=== PATIENT | male | born 1980 | race Caucasian/White ===

== ENCOUNTER 2022-04-21 21:47 | Inpatient (IN) | payer OTHER ==
[2022-04-21 23:50] LABS: BASO % 0.8 % (0-2.0); EOS % 1.2 % (0-4.5); HEMATOCRIT 29.8 % (35.4-49); HEMOGLOBIN 10.1 GM/dL (11.7-16.9); LYMPH % 15.1 % (8-40); MCH 28.7 pg (25.7-33.7); MEAN CELL VOLUME 84.6 fl (80-96); MEAN PLT VOLUME 7.5 fl (7.5-11.1); MONO % 11.6 % (3.8-10.2); NEUT % 71.3 % (42.8-82.8); PLATELET COUNT 376 10^3/uL (134-434); RBC 3.52 M/mm3 (4.00-5.60); RDW 15.9 % (11.9-15.9); WHITE BLOOD COUNT 13.3 K/mm3 (4.0-10.0)
[2022-04-21] MEDS ORDERED: PIPERACILLIN/TAZOB 4.5 GM 4.5 GM in DEXTROSE 5%-WATER 100 ML IVPB ONE (23:56)
[2022-04-21] MEDS ORDERED: VANCOMYCIN 1 GM in D5W (PRE-DOCKED) 1,000 MG/250 ML IVPB ONE (23:56)
[2022-04-21 23:58] LABS: INR 1.07 (0.83-1.09); PROTHROMBIN TIME (PATIENT) 12.3 SEC (9.7-13.0)
[2022-04-22 00:01] LABS: ACTIVATED PTT 33.2 SECONDS (25.2-36.5)
[2022-04-22 00:18] LABS: CALCIUM 8.4 mg/dL (8.5-10.1)
[2022-04-22 00:19] LABS: ALBUMIN 3.2 g/dl (3.4-5.0)
[2022-04-22 00:21] LABS: CREATININE 0.8 mg/dL (0.55-1.3)
[2022-04-22 00:23] LABS: BILIRUBIN,TOTAL 0.9 mg/dL (0.2-1); TOT PROT 8.5 g/dl (6.4-8.2)
[2022-04-22] MEDS ORDERED: PIPERACILLIN/TAZOB 4.5 GM 4.5 GM/100 ML BAG IVPB ONE (00:25)
[2022-04-22] MEDS ORDERED: VANCOMYCIN 1 GRAM (PRE-DOCKED) 1,000 MG/250 ML BAG IVPB ONE (00:25)
[2022-04-22] MEDS ORDERED: amLODIPine BESYLATE 5 MG TABLET (FP) PO ONE (02:41)
[2022-04-22] MEDS ORDERED: LORazepam 1 MG TABLET PO PRN (02:50)
[2022-04-22] MEDS ORDERED: amLODIPine BESYLATE 5 MG TABLET (FP) ONE ×2 (05:00→08:53)
[2022-04-22] MEDS ORDERED: LORazepam 1 MG TABLET ONE (05:00)
[2022-04-22] MEDS: LORazepam 1 MG TABLET PO SCH ×4 (05:06→23:58)
[2022-04-22] MEDS ORDERED: HYDROCHLOROTHIAZIDE 12.5 MG CAPSULE (FP) PO SCH (07:00)
[2022-04-22] MEDS ORDERED: THIAMINE HCL 200 MG/2 ML VIAL IVPB ONE (07:25)
[2022-04-22 07:53] LABS: BASO % 0.7 % (0-2.0); EOS % 2.5 % (0-4.5); HEMATOCRIT 29.2 % (35.4-49); HEMOGLOBIN 10.1 GM/dL (11.7-16.9); LYMPH % 15.7 % (8-40); MCH 29.1 pg (25.7-33.7); MCHC 34.6 g/dl (32.0-35.9); MEAN CELL VOLUME 84.1 fl (80-96); MEAN PLT VOLUME 7.2 fl (7.5-11.1); MONO % 11.2 % (3.8-10.2); NEUT % 69.9 % (42.8-82.8); PLATELET COUNT 337 10^3/uL (134-434); RBC 3.47 M/mm3 (4.00-5.60); RDW 15.5 % (11.9-15.9); WHITE BLOOD COUNT 7.5 K/mm3 (4.0-10.0)
[2022-04-22 08:22] LABS: CALCIUM 8.1 mg/dL (8.5-10.1); MAGNESIUM 1.7 mg/dL (1.8-2.4)
[2022-04-22 08:26] LABS: CREATININE 0.7 mg/dL (0.55-1.3)
[2022-04-22] MEDS ORDERED: HYDROCHLOROTHIAZIDE 25 MG TABLET (FP) ONE (08:26)
[2022-04-22 08:28] LABS: TOT PROT 7.1 g/dl (6.4-8.2)
[2022-04-22] MEDS ORDERED: THIAMINE HCL 200 MG/2 ML VIAL ONE (08:28)
[2022-04-22] MEDS ORDERED: FOLIC ACID 1 MG TABLET (FP) ONE (08:29)
[2022-04-22 08:31] LABS: ALBUMIN 2.4 g/dl (3.4-5.0)
[2022-04-22] MEDS ORDERED: NICOTINE 14 MG/24 HOURS TOPICAL PATCH TD ONE (08:53)
[2022-04-22] MEDS ORDERED: MAGNESIUM SULFATE IN WATER 2 GM/50 ML IVPB IVPB ONE (08:53)
[2022-04-22] MEDS ORDERED: ENOXAPARIN NA (PORCINE) 40 MG/0.4 ML DISP.SYRIN SQ ONE (08:53)
[2022-04-22] MEDS ORDERED: MAGNESIUM SULF 50% (8.12 MEQ/2 ML-1 GM VIAL) IVPB ONE (09:30)
[2022-04-22] MEDS: FOLIC ACID 1 MG TABLET (FP) PO SCH (09:45)
[2022-04-22] MEDS: NICOTINE 14 MG/24 HOURS TOPICAL PATCH TD SCH (09:45)
[2022-04-22] MEDS ORDERED: PIPERACILLIN/TAZOB 3.375 GM 3.375 GM/50 ML BAG IVPB ONE ×2 (09:45→17:41)
[2022-04-22] MEDS: ENOXAPARIN NA (PORCINE) 40 MG/0.4 ML DISP.SYRIN SQ SCH (09:45)
[2022-04-22] MEDS ORDERED: amLODIPine BESYLATE 5 MG TABLET (FP) PO SCH (10:00)
[2022-04-22] MEDS ORDERED: PIPERACILLIN/TAZOB 3.375 GM 3.375 GM in DEXTROSE 5%-WATER - 50 ML IVPB SCH (10:00)
[2022-04-22] MEDS ORDERED: VANCOMYCIN/WATER 1,250 MG/250 ML BAG IVPB SCH (12:00)
[2022-04-22] MEDS ORDERED: VANCOMYCIN/WATER 1250 MG 1,250 MG/250 ML BAG IVPB SCH (12:00)
[2022-04-22] MEDS ORDERED: TETANUS AND DIPHTHERIA TOXOID 0.5 ML DISP.SYRIN IM ONE (15:20)
[2022-04-22] MEDS ORDERED: DIPHTH,PERTUSS(ACELL),TET 0.5 ML DISP.SYRIN IM ONE ×2 (16:09→17:02)
[2022-04-22] MEDS: PIPERACILLIN/TAZOB 3.375 GM 3.375 GM in DEXTROSE 5%-WATER - 50 ML IVPB SCH (18:00)
[2022-04-23] MEDS ORDERED: PIPERACILLIN/TAZOBACTAM 3.375 GM VIAL IVPB ONE ×3 (05:10→17:10)
[2022-04-23] MEDS ORDERED: DEXTROSE 5%-WATER - 50 ML IVPB ONE ×3 (05:11→17:10)
[2022-04-23] MEDS: PIPERACILLIN/TAZOB 3.375 GM 3.375 GM in DEXTROSE 5%-WATER - 50 ML IVPB SCH ×3 (05:12→17:27)
[2022-04-23] MEDS: LORazepam 1 MG TABLET PO SCH ×3 (06:49→17:26)
[2022-04-23 08:49] VITALS: BMI 19.7
[2022-04-23 09:26] LABS: BASO % 0.7 % (0-2.0); EOS % 0.7 % (0-4.5); HEMATOCRIT 35.2 % (35.4-49); HEMOGLOBIN 11.9 GM/dL (11.7-16.9); LYMPH % 15.7 % (8-40); MCH 28.6 pg (25.7-33.7); MCHC 33.8 g/dl (32.0-35.9); MEAN CELL VOLUME 84.7 fl (80-96); MEAN PLT VOLUME 7.7 fl (7.5-11.1); MONO % 6.4 % (3.8-10.2); NEUT % 76.5 % (42.8-82.8); PLATELET COUNT 434 10^3/uL (134-434); RBC 4.16 M/mm3 (4.00-5.60); RDW 15.6 % (11.9-15.9)
[2022-04-23 09:55] LABS: BLOOD UREA NITROGEN 12.6 mg/dL (7-18); CALCIUM 8.5 mg/dL (8.5-10.1); MAGNESIUM 1.9 mg/dL (1.8-2.4)
[2022-04-23 09:56] LABS: ALBUMIN 2.6 g/dl (3.4-5.0)
[2022-04-23 09:58] LABS: CREATININE 0.6 mg/dL (0.55-1.3); PHOSPHOROUS 3.2 mg/dL (2.5-4.9)
[2022-04-23 10:00] LABS: BILIRUBIN,TOTAL 0.8 mg/dL (0.2-1); TOT PROT 7.7 g/dl (6.4-8.2)
[2022-04-23] MEDS: FOLIC ACID 1 MG TABLET (FP) PO SCH (10:00)
[2022-04-23] MEDS: THIAMINE HCL 100 MG TABLET (FP) PO SCH (10:00)
[2022-04-23] MEDS: amLODIPine BESYLATE 10 MG TABLET (FP) PO SCH (10:00)
[2022-04-23] MEDS: NICOTINE 14 MG/24 HOURS TOPICAL PATCH TD SCH (10:00)
[2022-04-23] MEDS: ENOXAPARIN NA (PORCINE) 40 MG/0.4 ML DISP.SYRIN SQ SCH (11:04)
[2022-04-23] MEDS ORDERED: VANCOMYCIN/WATER 1250 MG 1,250 MG/250 ML BAG IVPB SCH (13:00)
[2022-04-24] MEDS ORDERED: LORazepam 0.5 MG TABLET PO PRN
[2022-04-24] MEDS: LORazepam 1 MG TABLET PO SCH (00:04)
[2022-04-24] MEDS ORDERED: PIPERACILLIN/TAZOBACTAM 3.375 GM VIAL IVPB ONE ×2 (01:50→08:55)
[2022-04-24] MEDS ORDERED: DEXTROSE 5%-WATER - 50 ML IVPB ONE ×2 (01:51→08:55)
[2022-04-24] MEDS: PIPERACILLIN/TAZOB 3.375 GM 3.375 GM in DEXTROSE 5%-WATER - 50 ML IVPB SCH ×3 (02:06→10:34)
[2022-04-24] MEDS: LORazepam 0.5 MG TABLET PO SCH ×2 (06:27→12:45)
[2022-04-24] MEDS: NICOTINE 14 MG/24 HOURS TOPICAL PATCH TD SCH (09:19)
[2022-04-24] MEDS: FOLIC ACID 1 MG TABLET (FP) PO SCH (09:19)
[2022-04-24] MEDS: amLODIPine BESYLATE 10 MG TABLET (FP) PO SCH (09:19)
[2022-04-24] MEDS: THIAMINE HCL 100 MG TABLET (FP) PO SCH (09:19)
[2022-04-24] MEDS: ENOXAPARIN NA (PORCINE) 40 MG/0.4 ML DISP.SYRIN SQ SCH (09:20)
[2022-04-24 09:41] LABS: BASO % 0.5 % (0-2.0); EOS % 0.5 % (0-4.5); HEMATOCRIT 35.8 % (35.4-49); HEMOGLOBIN 12.5 GM/dL (11.7-16.9); LYMPH % 21.2 % (8-40); MCH 29.1 pg (25.7-33.7); MCHC 34.8 g/dl (32.0-35.9); MEAN CELL VOLUME 83.4 fl (80-96); MEAN PLT VOLUME 7.1 fl (7.5-11.1); MONO % 8.5 % (3.8-10.2); NEUT % 69.3 % (42.8-82.8); PLATELET COUNT 455 10^3/uL (134-434); RBC 4.29 M/mm3 (4.00-5.60); RDW 15.5 % (11.9-15.9); WHITE BLOOD COUNT 5.3 K/mm3 (4.0-10.0)
[2022-04-24 10:04] LABS: ALBUMIN 2.8 g/dl (3.4-5.0); BLOOD UREA NITROGEN 9.7 mg/dL (7-18); CALCIUM 8.6 mg/dL (8.5-10.1); MAGNESIUM 1.8 mg/dL (1.8-2.4)
[2022-04-24 10:07] LABS: CREATININE 0.8 mg/dL (0.55-1.3); PHOSPHOROUS 2.9 mg/dL (2.5-4.9)
[2022-04-24 10:08] LABS: BILIRUBIN,TOTAL 0.4 mg/dL (0.2-1); TOT PROT 8.5 g/dl (6.4-8.2)
[2022-04-24 13:43] VITALS: BP 132/89; PULSE 97; TEMP 98.3
[2022-04-25] MEDS ORDERED: LORazepam 0.5 MG TABLET PO ONE (05:00)
== END 2022-04-24 12:19 | disposition left against medical advice (07) | DRG 383 ==
LOC: JER 21:47 → JERBED 04-22 02:01 → J6S 04-22 23:43
PROVIDERS: ADMIT Internal Medicine; ATTEND Internal Medicine
DX: L03.116 Cellulitis of left lower limb (principal); B19.10 Unspecified viral hepatitis B without hepatic coma; I10 Essential (primary) hypertension; R16.0 Hepatomegaly, not elsewhere classified; B19.20 Unspecified viral hepatitis C without hepatic coma; D64.9 Anemia, unspecified; D72.829 Elevated white blood cell count, unspecified; F10.20 Alcohol dependence, uncomplicated; F19.20 Other psychoactive substance dependence, uncomplicated; R74.01 Elevation of levels of liver transaminase levels; S90.852A Superficial foreign body, left foot, initial encounter; F17.210 Nicotine dependence, cigarettes, uncomplicated; X58.XXXA Exposure to other specified factors, initial encounter; Y93.9 Activity, unspecified; Y92.89 Other specified places as the place of occurrence of the external cause; Y99.9 Unspecified external cause status
CPT/HCPCS: 0241U-QW; 36415; 73590-TC-LT-FY; 73630-TC-LT; 76705-TC; 80053; 82550; 82553; 82728; 83540; 83550; 83735; 84100; 85025; 85610; 85651; 85730; 86140; 86704; 86709; 86803; 86850; 86900; 86901; 87040; 87340; 87517; 87522; 90715; 93971-TC; 99285-25